=== PATIENT | female | born 1995 | race Caucasian/White ===

== ENCOUNTER 2023-10-17 09:28 | Emergency (ER) | payer BC ==
[~2023-10-17] VITALS: Ht 165.1 cm; Wt 126.2 kg
[2023-10-17 10:11] VITALS: BP 129/76; PULSE 83; RESP 18; TEMP 98.3; O2SAT 97
[2023-10-17] MEDS: cefTRIAXone SOD 1,000 MG VL IM ONE (10:47)
[2023-10-17] MEDS ORDERED: AUG875T PO (10:52)
[2023-10-17] MEDS ORDERED: PRED20TA2 PO (10:52)
[2023-10-17] MEDS ORDERED: IBUP-1456 PO (10:52)
== END 2023-10-17 10:56 | disposition home or self-care (01) ==
LOC: ER 09:28
DX: H66.91 Otitis media, unspecified, right ear (principal)
CPT/HCPCS: 96372; 99283; J0696

== ENCOUNTER 2023-10-19 19:31 | Emergency (ER) | payer BC ==
[~2023-10-19] VITALS: Ht 165.1 cm; Wt 96.0 kg
[2023-10-19 19:31] VITALS: BP 134/80; PULSE 74; RESP 20; O2SAT 96
[~2023-10-19 19:31] MED LIST: AUG875T PO; IBUP-1456 PO; PRED20TA2 PO
== END 2023-10-19 20:44 | disposition left against medical advice (07) ==
LOC: ER 19:31
DX: H92.01 Otalgia, right ear (principal); Z53.21 Procedure and treatment not carried out due to patient leaving prior to being seen by health care provider

== ENCOUNTER 2023-10-21 08:55 | Emergency (ER) | payer BC ==
[~2023-10-21] VITALS: Ht 165.1 cm; Wt 128.8 kg
[2023-10-21 09:16] VITALS: BP 139/74; PULSE 78; RESP 18; TEMP 98.2; O2SAT 97
[2023-10-21] MEDS ORDERED: COR10OTS OT (09:30)
[2023-10-21] MEDS: KETOROLAC TROMETH 30 MG/ML 1ML VIAL IM ONE (09:35)
== END 2023-10-21 09:57 | disposition home or self-care (01) ==
LOC: ER 08:55
DX: H60.91 Unspecified otitis externa, right ear (principal); Z79.899 Other long term (current) drug therapy
CPT/HCPCS: 96372; 99283; J1885

== ENCOUNTER 2025-03-04 18:50 | Emergency (ER) | payer BC ==
[~2025-03-04] VITALS: Ht 165.1 cm; Wt 124.0 kg
[~2025-03-04 18:50] MED LIST changes: +COR10OTS OT
--- NOTE | 2025-03-04 19:07 | ED.PDOC ---
History of present illness HPI Comments HPI: 29 y F who presents to the ED for chief complaint of hyperglycemia - pt states she has been having weakness, malaise, dehydration, polydipsia and polyuria for the past 1 week - pt states she had daughter with type 1 DM and states she gets similar symptoms when her blood sugar is high so she used her daughters machine to check her blood sugar - pt states accu check read at 348 and pt came to the ED for further evaluation - pt in the ED, otherwise has stable vitals but has noted accu check of 321 - pt in the ED, otherwise denies any past medical history Past Medical history: DENIES ANY Past Surgical history: DENIES ANY Medications: DENIES ANY Social History: Denies smoking, ETOH, and drug use. Allergies: NKA HPI: Poor Historian. REVIEW OF SYSTEMS: CONSTITUTIONAL: Denies acute: fever, diaphoresis, chills, HEAD: Denies acute: headache, photophobia Eyes: Denies acute: Double vision, vision loss, eye pain, eye discharge. EARS: Denies acute: tinnitus, hearing loss, ear discharge, ear pain, THROAT: Denies acute: sore throat, swelling, difficulty swallowing , pain with swallowing, change in voice. NECK: Denies acute: neck pain, neck swelling, stiff neck. HEART: Denies acute : chest pain, palpitations, LUNGS: Denies acute: SOB, wheezing, cough, hemoptysis ABDOMEN: Denies acute: abdominal pain, Nausea, Vomiting, diarrhea, melena , hematemesis, hematochezia SKIN: Denies acute: rash, redness, lesions, itchiness. EXTREMITIES: Denies acute: calf pain, numbness, tingling, weakness, denies pain in extremity. Denies acute: Low back pain. Neuro: Denies acute: focal neurological deficit, motor or sensory focal neurological deficit, tremors, seizure like activity, confusion, dizziness, change in mental status, loss of bowel or bladder function, cauda equina like symptoms. : Denies acute: dysuria, hematuria, flank pain, PSYCH: Denies acute: hallucination, suicidal ideation, homicidal ideation. FEMALE: Denies acute: abnormal vaginal bleeding, foul odor, unusual discharge. PHYSICAL EXAM: General: ----no----acute distress, awake and alert. Head: normocephalic, atraumatic. Neck: supple, trachea is midline, no swelling. Throat: Normal phonation. Eyes:, no erythema, no purulent discharge, no proptosis, no icterus. Heart: regular rate, regular rhythm, no significant murmur appreciated. Lungs: no apparent respiratory distress, Able to speak in full sentences. No wheezing, no rhonchi, no crackles. No stridors Clear to auscultation bilaterally. Abdomen: non tender to palpation, non distended, soft, no guarding, no rebound, + bowel sounds. Obese Neuro: Awake, Alert, oriented to name, self, situation, follows commands GCS=15. Speech is normal. Skin: no petechia, no purpura, no cyanosis, non-pale, not jaundice. Lower extremities: --trace bilateral - Pitting edema no deformity, no focal swelling, no calf TTP. Makes eye contact. moves all four extremities. Face: no apparent facial droop. Ambulating in the ED independently. ED COURSE: DISCLAIMER: This medical document was created using an electronic medical record system with voice recognition software and computerized dictation system. Although this document has been carefully reviewed, there might still be some phonetic and typographical errors. Occasional wrong-word or "sound-alike" substitutions may have occurred due to the inherent limitations of voice recognition software. These areas are purely typographical due to imperfections of the software programs and do not reflect any compromise in the patient's medical care. Please read the chart carefully and recognize, using context, where these substitutions have occurred. Chief Complaint: Hyperglycemia Time Seen by MD: 19:10 Primary Care Provider: RAVINDRA History of present illness: Medications, Allergies Allergies: Coded Allergies: NO KNOWN ALLERGIES (Unverified , 10/17/23) Home Meds Active Scripts Gzrfbbkv-[id number] (Otic) (Cortisporin Otic Soln) [address], 1 DROP OT TID for 5 Days, #10 ML Prov:CHUNG CRAIN 10/21/23 Ibuprofen (Ibuprofen) 800 Mg Tab, 1 TAB PO TID, #30 TAB Prov:SONDRA ALBERT 3/9/24 Prednisone (Prednisone) 20 Mg Tab, 60 MG PO DAILY, #18 TAB Prov:BETYSONDRA PADILLA 10/17/23 Amoxicillin & Pot Clavulanate (AUGMENTIN TABLET) 875 Mg Tb, 875 MG PO BID, #20 TAB Prov:RONNIE ALBERTDESCrystal RANDY 10/17/23 Information Source: Patient Mode of Arrival: Ambulatory Past Medical History PAST MEDICAL HISTORY: Denies Surgical History: Denies all surgeries 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 Was a procedure done?: No Differential Diagnosis (DM) Differential Diagnosis: Dehydration, Diabetic Coma, DKA, Electrolyte Abnormality, Gastritis, Gastroenteritis, Hepatitis, Hyperglycemia, Hyperosmolar State, UTI X-Ray, Labs, Meds, VS Vital Signs Date Time Temp Pulse Resp B/P (MAP) Pulse Ox O2 Delivery O2 Flow Rate FiO2 03/04/25 19:58 99.2 91 15 129/88 (102) 98 99.2 03/04/25 19:58 91 15 98 Room Air 03/04/25 19:10 98.6 80 16 130/83 (99) 100 98.6 Lab Test 03/04/25 20:49 03/04/25 19:19 03/04/25 19:14 Range/Units POC Glucose 249 H 70-106 mg/dl Urine Color Colorless Yellow Urine Clarity Clear Clear Urine pH 6.0 5.0-9.0 Urine Specific [place] 1.019 1.001-1.035 Urine Protein Negative Negative Urine Ketones Negative Negative Urine Blood Trace H Negative /uL Urine Nitrite Negative Negative Urine Bilirubin Negative Negative Urine Urobilinogen Normal Negative mg/dL Urine Leukocyte Esterase Negative Negative /uL Urine RBC None seen 0 - 4 /hpf Urine Microscopic WBC 1 0-5 /HPF Urine Squamous Epithelial Cells Few <5 /hpf Urine Bacteria None seen None Seen /hpf Urine Glucose 4+ H Normal mg/dL White Blood Count 7.8 4.4-10.8 10^3/uL Red Blood Count 4.59 4.0-5.20 10^6/uL Hemoglobin 13.2 12.2-16.2 g/dL Hematocrit 38.1 36.0-46.0 % Mean Corpuscular Volume 83.1 80.0-100.0 fL Mean Corpuscular Hemoglobin 28.8 28.0-32.0 pg Mean Corpuscular Hemoglobin Concent 34.6 32.0-36.0 g/dL Red Cell Distribution Width 13.0 11.8-14.3 % Platelet Count 335 140-450 10^3/uL Mean Platelet Volume 8.3 6.9-10.8 fL Neutrophils (%) (Auto) 60.1 37.0-80.0 % Lymphocytes (%) (Auto) 27.3 10.0-50.0 % Monocytes (%) (Auto) 9.7 0.0-12.0 % Eosinophils (%) (Auto) 2.3 0.0-7.0 % Basophils (%) (Auto) 0.6 0.0-2.0 % Neutrophils # (Auto) 4.7 1.6-8.6 10 ^3/uL Lymphocytes # (Auto) 2.1 0.4-5.4 10 ^3/uL Monocytes # (Auto) 0.8 0-1.3 10 ^3/uL Eosinophils # (Auto) 0.2 0-0.8 10 ^3/uL Basophils # (Auto) 0 0-0.2 10 ^3/uL Nucleated Red Blood Cells 0.0 % Sodium Level 137 136-145 mmol/L Potassium Level 3.6 3.5-5.1 mmol/L Chloride Level 102 98-107 mmol/L Carbon Dioxide Level 24 20-31 mmol/L Anion Gap 11 5-15 Blood Urea Nitrogen 9 9-23 mg/dL Creatinine 0.83 0.550-1.02 mg/dL Glomerular Filtration Rate Calc 97 >90 mL/min BUN/Creatinine Ratio 10.8 10.0-20.0 Serum Glucose 301 H 74-106 mg/dL Lactic Acid Level 1.3 0.4-2.0 mmol/L Calcium Level 8.8 8.7-10.4 mg/dL Magnesium Level 1.9 1.6-2.6 mg/dL Total Bilirubin 0.7 0.2-1.0 mg/dL Aspartate Amino Transferase (AST) 114 H 13-40 U/L Alanine Aminotransferase (ALT) 220 H 7-40 U/L Alkaline Phosphatase 72 46-116 U/L Total Protein 6.9 5.7-8.2 g/dL Albumin 4.6 3.2-4.8 g/dL Current Medications Medications (Trade) Dose Ordered Sig/Sean Route Start Time Stop Time Status Last Admin Sodium Chloride 1,000 ml @ 1,000 mls/hr Q1H ONCE IV 03/04/25 19:15 03/04/25 20:14 DC 03/04/25 20:16 Time of 1ST Reevaluation: 19:50 Reevaluation 1ST: Improved Patient Education/Counseling: Diagnosis, Treatment Family Education/Counseling: No Family Present Comments MDM: patient presented with the above HPI.---hyperglycemia---workup was initiated. patient was found with the above mentioned diagnosis. the following medications were ordered: please refer to order lists of meds and tests obtained by myself Dr. Pisano. Patient ED course and VS have been stabilized. Patient has been reassessed in the ED and remained in a stable condition. Pertinent incidental findings were discussed with the patient and/or family. Patient/family voices understanding and is agreeable with plan. Patient has been observed in the ED adequate length of time to insure improvement/stability. Escalation of care considered: Consideration of escalation to observation or admission Patient was DISCHARGED home in a stable condition. All the reports of any imaging studies that were ordered by myself were reviewed by myself. SEPSIS Sepsis Screen Physician Orders Dust Control Engineer (03/04/25 ) Vital Signs Date Time Temp Pulse Resp B/P (MAP) Pulse Ox O2 Delivery O2 Flow Rate FiO2 03/04/25 19:58 99.2 91 15 129/88 (102) 98 99.2 03/04/25 19:58 91 15 98 Room Air 03/04/25 19:10 98.6 80 16 130/83 (99) 100 98.6 Laboratory Tests Test 03/04/25 19:14 Lactic Acid Level 1.3 mmol/L (0.4-2.0) White Blood Count 7.8 10^3/uL (4.4-10.8) Medications Medications Dose Ordered Sig/Sean Route Start Time Stop Time Status Last Admin Dose Admin Sodium Chloride 1,000 ml @ 1,000 mls/hr Q1H ONCE IV 03/04/25 19:15 03/04/25 20:14 DC 03/04/25 20:16 Departure 1 Departure Time of Disposition: 19:49 Impression: Primary Impression: Hyperglycemia Additional Impression: Elevated LFTs Disposition: 01 HOME / SELF CARE / HOMELESS Condition: Stable Additional Instructions: Additional instructions: You MUST follow-up with your primary care/family doctor in 1 to 2 days. If you are unable to see your primary care/family doctor, please return to our emergency room for re-assessment and re-evaluation in 1 to 2 days. Return to the emergency room here in our facility or to the nearest ER [facility] if your symptoms change or worsen. CONSULTATIONS: you MUST Follow-up for consultation as soon as possible with: -endocrinology and gastroenterology in 1-2 days. Please call for appointment You MUST call the consultants office yourself to make an appointment. You may need to arrange that through your insurance and/or your primary/family doctor. If you are unable to see the siebel consultant in 1 to 2 days, you must return to our emergency room (or any other ER of your choice) for re-assessment and re- evaluation. Adequate fluid hydration. Monitoring blood sugar at home at least 3 times a day. Discharged With: Self Critical Care Note Critical Care Time?: No I personally scribed for ALVIN PISANO DO ([email or web address]) on 03/04/25 at 19:07. E lectronically submitted by Ml Biswas ([email or web address]). I personally scribed for ALVIN PISANO DO ([email or web address]) on 03/04/25 at 19:14. Electronically submitted by Ml Biswas ([email or web address]). I personally scribed for ALVIN PISANO DO ([email or web address]) on 03/04/25 at 21:37. Electronically submitted by Ml Biswas ([email or web address]). ALVIN PISANO DO Mar 04, 2025 19:07
[2025-03-04 19:29] LABS: Hematocrit 38.1 % (36.0-46.0); Hemoglobin 13.2 g/dL (12.2-16.2); Mean Corpuscular Hemoglobin 28.8 pg (28.0-32.0); Mean Corpuscular Volume 83.1 fL (80.0-100.0); Nucleated Red Blood Cells % 0.0 %
[2025-03-04 19:33] LABS: Urine Protein, UAD Negative (Negative)
[2025-03-04 19:42] LABS: Albumin 4.6 g/dL (3.2-4.8); Alkaline Phosphatase 72 U/L (46-116); Anion Gap 11 (5-15); BUN/Creatinine Ratio 10.8 (10.0-20.0); Calcium 8.8 mg/dL (8.7-10.4); Carbon Dioxide 24 mmol/L (20-31); Chloride 102 mmol/L (98-107); Magnesium 1.9 mg/dL (1.6-2.6); Potassium 3.6 mmol/L (3.5-5.1); Sodium 137 mmol/L (136-145); Total Protein 6.9 g/dL (5.7-8.2)
[2025-03-04 19:43] LABS: Alanine Aminotransferase 220 U/L (7-40); Bilirubin, Total 0.7 mg/dL (0.2-1.0); Blood Urea Nitrogen 9 mg/dL (9-23); Glucose 301 mg/dL (74-106)
[2025-03-04 19:58] VITALS: BP 129/88; PULSE 91; RESP 15; TEMP 99.2; O2SAT 98
[2025-03-04] MEDS: SODIUM CHLORIDE 0.9% 1,000 ML IV ONE (20:16)
== END 2025-03-04 20:57 | disposition home or self-care (01) ==
LOC: ER 18:50
DX: R73.9 Hyperglycemia, unspecified (principal); R74.01 Elevation of levels of liver transaminase levels; E86.0 Dehydration
CPT/HCPCS: 36415; 80053; 81001; 82947; 83605; 83735; 85025; 96360; 99283; J7030; 82962